=== PATIENT | female | born 1980 | race Caucasian/White ===

== ENCOUNTER 2023-04-06 08:31 | Outpatient (CLI) | payer BC, SELFPAY ==
--- NOTE | 2023-04-27 17:19 | WPDHOMESLEEP ---
Sleep Study - Home Unattended Date of Study: 04/06/23 Ordering Provider: Katie Acosta DO Interpreting Provider: Iwona Sherwood MD Home Sleep Study Type: Watch PAT Height: 1.63 m Weight: 99.79 kg Body Mass Index: 37.8 Neck Circumference (inches): 15.5 [place]: 8 Reason for Sleep Study Daytime hypersomnia, unrefreshing sleep Sleep History Liv Torres is a 43-year-old female with history of depression, anxiety and tobacco use who underwent a home sleep test for evaluation of daytime hypersomnia and unrefreshing sleep. She occasionally has trouble sleeping when she has a cold. She rarely wakes up gasping for breath during the night. She rarely has breathing problems at night. She occasionally sweats excessively at night. She never notices her heart pounding or beating irregularly during the night. She occasionally falls asleep during the day. She never falls asleep while driving. She never experiences loss of muscle tone with strong emotion. She rarely has trouble at work because of sleepiness. She never feels paralyzed on waking or falling asleep. She rarely experiences vivid dreams upon waking or falling asleep. She does not feel afraid of going to sleep. She rarely has nightmares. She occasionally recalls her dreams. She rarely has thoughts racing through her mind. She occasionally feels sad or depressed. She occasionally feels anxiety or worry about things. She occasionally notices parts of her body jerk. She never kicks during the night. She frequently feels crawling or aching feelings in her legs. She occasionally feels leg pain at night. She never grinds her teeth or has morning jaw pain. She rarely feels bothered by pain during the day and is never awakened by pain during the night. She frequently wakes up feeling stiff in the morning. She occasionally wakes up feeling sore and achy in the morning with pain in her neck, spine, or joints. Normal bedtime is around 10pm on the weekdays and 11pm on the weekends, taking 10 minutes to fall asleep. She typically gets about 8 hours of sleep per night. Her wake up time is between 6am on the weekdays and 9am on the weekends. She typically wakes up around 2 to 3 times per night, awake 15 minutes or so and she will go to the bathroom, smoke a cigarette and go back to bed. Habits: Current daily tobacco smoker, 6-8 cigarettes per day. Drinks several caffeinated beverages per day, typically including a pot of coffee in addition to soda. No alcohol or recreational substances. [facility] Past Medical History Medical History ADD (attention deficit disorder) Anxiety OCD (obsessive compulsive disorder) Surgical History Surgical History Hx of cholecystectomy Status post tendon repair Family History Family History Father Anxiety Depression Mother Breast cancer Anxiety Depression Grandparent Cancer Heart problem Cerebrovascular accident Grandparent Cerebrovascular accident Social History Social History Smoking status: Current every day smoker Tobacco type: cigarettes and e-cigarettes/vaping Alcohol intake: current Alcohol use details: very rarely Substance use: never Lack of Transportation: No Lack of Food: Never True Current Housing: I Have Housing Concerned About Future Housing: No Difficulty Paying Gas/Electric Bills: No Difficulty Paying for Meds: No Currently Unemployed: No Education: High School Diploma/GED Difficulty w/ Childcare or Family Care: No Living arrangements: with family Occupation/Education: occupation Additional occupation/education comments: [employer] Gender identity (if verbalized by the patient): Female Agree to blood products: Yes Medications Home Medications Medica
[2023-04-27 17:22] VITALS: BMI 37.8
== END 2023-04-08 13:34 | disposition home or self-care (01) ==
LOC: ANHCSM 08:31
PROVIDERS: PCP Family Medicine; Visit Provider Family Medicine
DX: G47.9 Sleep disorder, unspecified (principal)
CPT/HCPCS: 95800

== ENCOUNTER 2024-10-21 10:32 | Outpatient (CLI) | payer BC, SELFPAY ==
[2024-10-21 11:16] LABS: Basophils Absolute Auto 0.1 K/mm3 (0.0-0.1); Basophils Percent Auto 0.8 % (0.2-1.2); Eosinophils Absolute Auto 0.2 K/mm3 (0-0.3); Eosinophils Percent Auto 3.6 % (0-4.4); Hematocrit 38.8 % (37.0-47.0); Hemoglobin 12.6 g/dL (12.0-15.0); Immature Granulocyte Absolute 0.05 K/mm3 (0.00-0.031); Immature Granulocyte Percent A 0.8 % (0-0.5); Lymphocytes Absolute Auto 1.82 K/mm3 (0.9-3.2); Lymphocytes Percent Auto 28.3 % (18.3-44.2); Mean Corpuscular HGB Conc 32.5 g/dl (32-36); Mean Corpuscular Hemoglobin 30.2 pg (26-34); Mean Platelet Volume 10.6 fl (7.4-10.4); Monocytes Absolute Auto 0.6 K/mm3 (0.1-0.6); Neutrophils Absolute Auto 3.7 K/mm3 (1.3-6.7); Neutrophils Percent Auto 57.5 % (45.5-73.1); Platelet Count Result 263 k/mm3 (150-375); Red Blood Count 4.17 M/mm3 (4.2-5.4); Red Cell Distribution Width 12.6 % (11.5-14.5); White Blood Count 6.4 K/mm3 (4.5-10.0)
[2024-10-21 11:34] LABS: Alanine Aminotransferase 20 U/L (6-35); Albumin Level 4.4 g/dL (3.5-5.1); Alkaline Phosphatase 63 U/L (38-126); Anion Gap 8 mmol/L (4-12); Aspartate Amino Transferase 25 U/L (14-36); Bilirubin,Total 0.3 mg/dL (0.2-1.3); Blood Urea Nitrogen 12 mg/dL (7-17); Calcium 9.2 mg/dL (8.4-10.2); Carbon Dioxide 26 mmol/L (22-30); Chloride 104 mmol/L (98-107); Cholesterol 230 mg/dL (0-200); Estimated Glomerular Filt Rate > 60; Glucose 103 mg/dL (65-110); HDL Direct 54 mg/dL; Potassium 4.3 mmol/L (3.4-5.0); Sodium 138 mmol/L (137-145); Triglycerides 142 mg/dL (<150)
[2024-10-21 11:44] LABS: LDL Cholesterol Direct 132 mg/dL
[2024-10-21 11:59] LABS: Free T4 Free Thyroxine 0.74 ng/dL (0.78-2.19); Vitamin D 25 Hydroxy 31.1 ng/mL
[2024-10-21 12:09] LABS: Hemoglobin A1C 6.3 % (<5.7)
--- OUTSIDE RECORDS SUMMARY | 2024-10-22 11:51 | XMS_ITS | Clinical Summary ---
Author Organization [facility] Address [facility] [place] [address] Care Team Providers Care Electrical Parts Reconditioner Name Role Phone Katie Acosta DO Primary Care Provider [phone]- [phone] Family History Medical History Relation Comments Breast Cancer Maternal Aunt 1 Breast Cancer Maternal Aunt 2 Breast Cancer Maternal Grandmother in her 60's Breast Cancer Mother Relation Status Comments Maternal Aunt 1 Maternal Aunt 2 Maternal Grandmother Mother Social History Tobacco Use Types Packs/Day Years Used Date Smoking Tobacco: Never Assessed Comments Unknown Sex and Gender Information Value Date Recorded Sex Assigned at Not on file 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 [address] [facility] [place] [address] Katie Acosta DO [address] [place] [address] Health Maintenance Due Date Last Done Comments Cervical Cancer Screening Pap Smear (Age 30 to 64) Every 3 Years 1981 Annual Physical 1984 Hepatitis C 1999 Hepatitis B Vaccines (1 of 3 - 19+ 3-dose series) 2000 Cervical Cancer Screening Pap with HPV Testing (Age 30 to 64) Every 5 Years 2011 Cervical Cancer Screening with HPV 2011 DTaP, Tdap and Td Vaccines (7 - Td or Tdap) 06/10/2021 06/10/2011, 01/21/1996, 12/21/1986, Additional history exists COVID-19 Vaccine ( season) 2024 06/18/2021, 07/23/2020, 07/02/2020 Mammogram Screening 09/20/2025 09/21/2023, 07/16/2022, 07/01/2021 HPV Vaccines Aged Out No longer eligi ble based on patient's age to complete this topic Meningococcal B Vaccine Aged Out No l onger eligible based on patient's age to complete this topic Meningococcal Vaccine Aged Out No darin arnulfo eligible based on patient's age to complete this topic Pneumococcal Vaccine: Pediatrics (0 to 5 Years) and At-Risk Patients (6 to 49 Years) Aged Out No longer eligible based on patient's age to complete this topic RSV Immunizations Under 20 Months Aged Out No longer eligible based on patient's age to complete this topic Procedures Procedure Name Priority Date/Time Associated Diagnosis Comments MG SCREENING W CHLOÉ KAIDEN DIGI Routine 09/21/2023 3:49 PM CDT Visit for screening mammogram from Last 3 Months or Most Recently Relevant to Health Maintenance Results * MG SCREENING W CHLOÉ KAIDEN DIGI (09/21/2023 3:49 PM CDT) Anatomical Region Laterality Modality Breast Bilateral Mammography 09/21/2023 4:00 PM CDT Narrative 09/21/2023 4:00 PM CDT Examination: Digital screening mammogram with CAD. Clinical history: Asymptomatic patient presents for routine screening. Comparison: 07/16/2022, 07/01/2021. Technique: Bilateral digital mammograms. The exam was interpreted with the use of a computer-aided detection (CAD) system. Additional 3-D tomosynthesis images were acquired. Tissue density: The breast tissue contains scattered fibroglandular densities. Findings: The breast tissue contains scattered fibroglandular densities. Benign-appearing calcification noted. No suspicious mass, microcalcification or area of architectural distortion can be identified. From a mammographic standpoint, routine followup in one year would seem adequate. IMPRESSION: No suspicious change since the previous exams. Recommendation: 1: Routine Screening Bilateral in 1 Year Assessment: ACR BI-RADS 2 - BENIGN FINDING(S) Ordered By: KATIE ACOSTA Interpreted By: Wallace Marquis MD, 09/21/2023 4:00 PM Katie Acosta DO MAMMO Final Resu lt from Last 3 Months or Most Recently Relevant to Health Maintenance Insurance Care Teams Electrical Parts Reconditioner Relationship Specialty Start Date End Date Katie Acosta DO [address] [place] [address] PCP - General FAMILY PRACTICE 08/21/23
--- OUTSIDE RECORDS SUMMARY | 2024-10-22 11:51 | XMS_ITS | Encounter Summary ---
Author Organization [facility] Address [facility] [place] [address] Care Team Providers Care Roll Edge Stitcher Hand Name Role Phone Kareem Bowers MD Primary Care Provider [phone]- [phone] Katie Acosta DO Primary Care Provider + [phone] Encounter Details Date Type Department Care Team (Late st Contact Info) Description 11/27/2018 Abstract [facility] CONVERSION [address] [place] [address] , Generic Conversion, Social History Tobacco Use Types Packs/Day Years Used Date Smoking Tobacco: Never Assessed Comments Unknown Sex and Gender Information Value Date Recorded Sex Assigned at Not on file 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 [address] [place] [address] Katie Acosta DO [address] [place] [id number] documented as of this encounter Visit Diagnoses Not on filedocumented in this encounter Care Teams Roll Edge Stitcher Hand Relationship Specialty Start Date End Date Kareem Bowers MD [address] [place] [id number] PCP - General FAMILY PRACTICE 05/21/21 08/20/23 Katie Acosta DO [address] [place] [address] PCP - General FAMILY PRACTICE 08/21/23 documented as of this encounter
== END 2024-10-21 10:33 | disposition home or self-care (01) ==
LOC: ANHLAB 10:34
PROVIDERS: PCP Family Medicine; Visit Provider Family Medicine
DX: E66.9 Obesity, unspecified (principal); R53.83 Other fatigue; R73.9 Hyperglycemia, unspecified; Z13.220 Encounter for screening for lipoid disorders; E55.9 Vitamin D deficiency, unspecified; Z00.00 Encounter for general adult medical examination without abnormal findings
CPT/HCPCS: 36415; 80053; 80061; 82306; 83036; 84439; 84443; 85025